=== PATIENT | female | born 1995 | race Hispanic/Latino ===

== ENCOUNTER 2019-01-21 05:01 | Emergency (ER) | payer SELFPAY ==
[~2019-01-21] VITALS: Ht 167.6 cm; Wt 59.0 kg
[2019-01-21] MEDS ORDERED: LIDOCAINE HCL 1% LOCAL INJ 20 ML VIAL INJ ONE (06:00)
[2019-01-21 06:01] VITALS: BP 136/84
--- NOTE | 2019-01-21 06:12 | Diagnostic Imaging Report ---
Exam: Right hand 3 views History: Fourth distal phalangeal pain Comparison: None. Findings: Acute, oblique minimally displaced fracture of the middle phalanx of the fourth digit without intra-articular extension. Remaining osseous structures are intact. Overlying soft tissue swelling. Impression: Acute, oblique minimally displaced fracture of the fourth middle phalanx. Signed by: Dr. Osmin Barraza M.D. on 01/21/2019 6:09 AM
== END 2019-01-21 06:09 | disposition home or self-care (01) ==
LOC: ER 05:01
DX: S62.624A Displaced fracture of middle phalanx of right ring finger, initial encounter for closed fracture (principal); W03.XXXA Other fall on same level due to collision with another person, initial encounter; Y92.89 Other specified places as the place of occurrence of the external cause
CPT/HCPCS: 99283

== ENCOUNTER 2020-10-16 21:17 | Emergency (ER) | payer SELFPAY ==
[~2020-10-16] VITALS: Ht 167.6 cm; Wt 59.0 kg
[2020-10-16 21:57] LABS: CLARITY,URINE SL CLOUDY (CLEAR); COLOR,URINE YELLOW (YELLOW); KETONES,URINE NEGATIVE (NEGATIVE); LEUKOCYTE ESTERASE ,URINE SMALL (NEGATIVE); NITRITE,URINE NEGATIVE (NEGATIVE); PROTEIN,URINE DIPSTICK NEGATIVE (NEGATIVE); URINE UROBILINOGEN 0.2 mg/dL (0.2 - 1)
[2020-10-16 21:58] LABS: BASOPHILS % 0.5 % (0.0-1.0); EOSINOPHILS % 1.9 % (0.0-6.0); HEMATOCRIT 34.1 % (34.2-44.1); HEMOGLOBIN 11.5 g/dL (12.0-16.0); LYMPHOCYTES % 33.6 % (18.0-39.1); MEAN CORPUSCULAR HEMOGLOBIN 29.7 pg (28-32); MEAN CORPUSCULAR HGB CONC 33.7 g/dL (31-35); MEAN CORPUSCULAR VOLUME 88.1 fL (81-99); MONOCYTES % 6.6 % (4.4-11.3); NEUTROPHILS % 57.1 % (38.7-80.0); PLATELET COUNT 239 x10e3/uL (140-360); RED BLOOD COUNT 3.87 x10e6/uL (3.6-5.1); RED CELL DISTRIBUTION WIDTH 13.1 % (11.7-14.4)
[2020-10-16 22:07] LABS: AMORPHOUS SEDIMENT,URINE MODERATE (FEW); BACTERIA,URINE FEW /HPF; EPITHELIAL CELLS,URINE FEW /LPF; RBC,URINE 0-5 /HPF (0-5)
[2020-10-16 22:16] LABS: ALANINE AMINOTRANSFERASE 18 IU/L (0-55); ALBUMIN 4.1 g/dL (3.5-5.0); ALBUMIN/GLOBULIN RATIO 1.2 (0.8-2.0); ALKALINE PHOSPHATASE 78 IU/L (40-150); ANION GAP 12.8 mmol/L (8-16); BLOOD UREA NITROGEN 17 mg/dL (7-26); BUN/CREATININE RATIO 26 (6-25); CALCIUM 9.2 mg/dL (8.4-10.2); CARBON DIOXIDE 21 mmol/L (22-29); CHLORIDE 108 mmol/L (98-107); CREATININE, SERUM 0.66 mg/dL (0.57-1.11); EST GLOMERULAR FILTRATION RATE > 60 ML/MIN (60-); GLUCOSE 109 mg/dL (74-118); POTASSIUM 3.8 mmol/L (3.5-5.1); SODIUM 138 mmol/L (136-145)
[2020-10-17 01:20] VITALS: BP 100/64
== END 2020-10-17 01:15 | disposition home or self-care (01) ==
LOC: ER 21:46
DX: R10.30 Lower abdominal pain, unspecified (principal); R10.2 Pelvic and perineal pain
CPT/HCPCS: 36415; 76830; 76856; 80053; 81001; 81025; 85025; 93976; 99283